=== PATIENT | female | born 1980 | race Hispanic/Latino ===

== ENCOUNTER 2016-11-11 15:08 | Inpatient (IN) | payer MEDICAID ==
[~2016-11-11] VITALS: Ht 160 cm; Wt 86.2 kg
[~2016-11-11 15:08] MED LIST: LABE100T4 PO
[2016-11-11] MEDS ORDERED: Lactated Ringer's 1,000 ML IV SCH (18:34)
[2016-11-11] MEDS ORDERED: Lactated Ringer's 1,000 ML IV PRN (18:34)
[2016-11-11] MEDS ORDERED: Ondansetron 2 mg/mL 2 mL Inj IVPUSH PRN (18:35)
[2016-11-11] MEDS ORDERED: diphenhydrAMINE 50 mg Capsule PO PRN (18:35)
[2016-11-11] MEDS ORDERED: Carboprost 250 mCg/mL Inj IM PRN (18:35)
[2016-11-11] MEDS ORDERED: Hemorrhage Kit, Post Partum XX ONE (18:35)
[2016-11-11] MEDS ORDERED: Oxytocin 30 Units/500 mL LR 30 UNITS in IV Premix 1 EACH IV PRN (18:35)
[2016-11-11] MEDS ORDERED: Oxytocin 10 Unit/mL Inj IM PRN (18:35)
[2016-11-11] MEDS ORDERED: fentaNYL-PF 50 mCg/mL 2 mL Inj IVPUSH PRN (18:35)
[2016-11-11] MEDS ORDERED: Methylergonovine 0.2 mg/mL Inj IM PRN (18:35)
[2016-11-11] MEDS ORDERED: CHOL100043 PO (18:38)
[2016-11-11] MEDS ORDERED: LABE200T PO (18:38)
--- NOTE | 2016-11-11 18:46 | PCM.HPOB ---
Subjective Date of Service: November 11, 2016 Referring Provider: Admitting Physician: Ike Sher MD Primary Care Physician: Elissa Sterling MD Attending Physician: Ike Sher MD Chief Complaint Contractions History of Present History of Present Illness Dorothy is a 36-year-old 2 para 1 with a history of advanced maternal age and gestational hypertension on labetalol who presented to the [facility] today with complaints of contractions. She was checked in the office earlier today by Dr. Sher was found be at that time about 3 cm. She had a category 1 heart rate tracing and was allowed to walk for several hours and upon her return to the [facility] she was 5 cm dilated. Her is located by advanced maternal age, uterine fibroid and an echogenic intracardiac focus on anatomy ultrasound. Estimated due date of December 02 2016 by a 7 week ultrasound. labs: She is O+, rubella immune, RPR nonreactive, testes the cervix and gently negative, HIV negative, gonorrhea and chlamydia were negative. She is GBS negative Obstetrical Complications: Gestational Hypertension Past Medical History Obstetrical History: 1. History of a vacuum-assisted vaginal delivery at 40 weeks gestation Gynecologic History: Noncontributory Medical History: No significant past medical history Surgical History: None Hx Tobacco Use: No Smoking Status: Never Smoker Hx Alcohol Use: No Hx Substance Use: No Past Family History Living Arrangement: with Family Genetic Screening/Counseling Genetic Screening/Counseling: Positive (advanced maternal age) Baby father-had child w defect: No Medications Home medications vitamin Allergy Coded Allergies: No Known Allergies (Unverified , 11/03/16) Exam Constitutional: Well-developed, Well-nourished HEENT: Atraumatic Lungs: Clear to Auscultation Heart: Exam Unremarkable Abdomen: Gravid Neurological/Psychiatric: Alert, Oriented X3, Cooperative, No Acute Distress Neuro: Grossly Neurologically Intact Additional Information Cervix is 5 cm/70/-2 soft and mid position Labs/Diagnostics Maternal Blood Type: O (Positive) Antibody Screen: negative Group B Strep Results: Negative Previous with GBS: No Rubella: Immune Lab History: Positive for: Hx Chicken Pox OB Intrapartum Assessment/Plan Problems: (1) Gestational HTN Plan: 37 weeks with gestational hypertension in early labor. Admit for labor and Pitocin augmentation if needed. Status: Acute ICD Code: O13.9 (2) 37 weeks gestation of Status: Acute ICD Code: Z3A.37 Brie Eden MD November 11, 2016 18:46
[2016-11-11 18:51] LABS: Mean Corpuscular Hemoglobin 30.6 pg (27.0-35.0); Mean Corpuscular Volume 91.9 fL (81-100)
--- NOTE | 2016-11-12 07:02 | PCM.PNOBIP ---
Subjective Date of Service November 12, 2016 Delivery plan: Spontaneous Vaginal Delivery Visit History Dorothy is a 36-year-old 2 para 1 with a history of advanced maternal age and gestational hypertension on labetalol who presented to the [facility] today with complaints of contractions. She was checked in the office earlier today by Dr. Sher was found be at that time about 3 cm. She had a category 1 heart rate tracing and was allowed to walk for several hours and upon her return to the [facility] she was 5 cm dilated. Her is located by advanced maternal age, uterine fibroid and an echogenic intracardiac focus on anatomy ultrasound. Estimated due date of December 02 2016 by a 7 week ultrasound. Subjective Patient has no complaints this morning. She is feeling contractions, but does not desire anything for pain at this time. Gastrointestinal: No N/V Group B Strep Results: Negative Rubella: Immune Blood Type: O (Positive) Labs Laboratory Tests 11/11/16 18:05: Hold Purple Top Tube Received 11/11/16 18:41: White Blood Count 10.8, Red Blood Count 4.44, Hemoglobin 13.6, Hematocrit 40.8, Mean Corpuscular Volume 91.9, Mean Corpuscular Hemoglobin 30.6, Mean Corpuscular Hemoglobin Concent 33.3, Red Cell Distribution Width 13.0, Platelet Count 192, Hematology Comments Exam Vital Signs Vital Signs Contraction frequency in minutes: 2 to 3 minutes Heart Tracings Heart Tones Baseline 140 bpm Heart Rate Variability: Moderate Heart Rate Accelleration: Present Heart Rate Deceleration: Present Heart Rate Category: II Sterile Vaginal Exam Cervical Dilation: 7 cms Cervical Effacement: 70 % Station: -3 Exam General: Alert, Oriented X3, Cooperative, Mild Distress (with contractions) OB Intrapartum Assessment/Plan Problems: (1) Gestational HTN Plan: Continue labetolol 200mg BID Status: Acute ICD Code: O13.9 (2) 37 weeks gestation of Status: Acute ICD Code: Z3A.37 (3) Preeclampsia Plan: Continue with Pitocin. AROM, but no fluid return Continue to monitor. FHT overall reassuring Status: Acute ICD Code: O14.90 Intrapartum plan: AROM Brie Eden MD November 12, 2016 07:02
[2016-11-12] MEDS ORDERED: fentaNYL 2 mCg/mL-Bupivicaine 0.125% 100 mL Premix EPIDURAL ONE (07:41)
[2016-11-12] MEDS ORDERED: Lactated Ringer's 1,000 ML IV SCH (11:02)
[2016-11-12] MEDS ORDERED: Methylergonovine 0.2 mg/mL Inj IM PRN (11:05)
[2016-11-12] MEDS ORDERED: Hemorrhage Kit, Post Partum XX ONE (11:05)
[2016-11-12] MEDS ORDERED: Oxytocin 30 Units/500 mL LR 30 UNITS in IV Premix 1 EACH IV PRN (11:05)
[2016-11-12] MEDS ORDERED: Benzocaine (Dermoplast) 20% 60 Gm Spray TOPICAL PRN (11:05)
[2016-11-12] MEDS ORDERED: Oxytocin 10 Unit/mL Inj IM PRN (11:05)
[2016-11-12] MEDS ORDERED: Witch Hazel-Glycerin Pads TOPICAL PRN (11:05)
[2016-11-12] MEDS ORDERED: Carboprost 250 mCg/mL Inj IM PRN (11:05)
[2016-11-12] MEDS ORDERED: LANOlin HPA 7 Gm Ointment TOPICAL PRN (11:05)
--- NOTE | 2016-11-12 11:47 | OP ---
[address] [address] OPERATIVE REPORT PATIENT: YESENIA BADILLO : 1980 MR#: [id number] ADMIT: 11/11/2016 JOB ID: [id number] DATE OF SURGERY: 11/12/2016 PREOPERATIVE DIAGNOSIS(ES): A 36-year-old 2, para 1-0-0-1, at 37 weeks and 1 day gestational age admitted for active labor. Had augmentation with Pitocin and artificial rupture of membranes. Progressed to fully dilated, +3 station. complicated with preeclampsia and high blood pressures were controlled with labetalol 200 mg q.12 and she developed a urine protein creatinine ratio of 0.39 on admission last night with new diagnosis of preeclampsia. POSTOPERATIVE DIAGNOSIS(ES): A 36-year-old 2, para 1-0-0-1, at 37 weeks and 1 day gestational age admitted for active labor. Had augmentation with Pitocin and artificial rupture of membranes. Progressed to fully dilated, +3 station. complicated with preeclampsia and high blood pressures were controlled with labetalol 200 mg q.12 and she developed a urine protein creatinine ratio of 0.39 on admission last night with new diagnosis of preeclampsia. PROCEDURE: Spontaneous vaginal delivery. SURGEON: Ike Sher M.D. ANESTHESIA: Epidural. ESTIMATED BLOOD LOSS: 200 cc. COMPLICATIONS: None. FINDINGS: Single viable male infant with Apgars 8/9. Weight is still pending. DESCRIPTION OF PROCEDURE: The patient started to push efficiently. had delivered atraumatic spontaneously with nuchal cord x1 reduced over the baby's neck and anterior shoulder delivered as well as posterior shoulder and rest of the body. Baby was delivered in left occiput anterior position. Delayed cord clamping allowed for 60 seconds, cord clamped and cut. Infant placed over mom's chest. Placenta followed spontaneously. Upon inspection, it was noted to be intact with three-vessel cord marginally inserted. Inspection of the perineum revealed a second-degree perineal laceration at 6 o'clock. This was repaired in two layer fashion with 2-0 Vicryl suture. Epidural was adequate for the repair. Good hemostasis assured. The patient tolerated the procedure well. Firm uterine fundus at the end of the delivery. Mom and baby recovering in stable condition in labor and delivery room. Dr. Sher was present and scrubbed for the entire delivery. Preeclampsia labs will be checked in the morning and will keep monitoring the patient's blood pressures.
[2016-11-12] MEDS: Ascorbic Acid 500 mg Tablet PO SCH (18:55)
[2016-11-13 06:33] LABS: BASOPHILS % (AUTO) 0.2 % (0-3); EOSINOPHILS % (AUTO) 0.6 % (0-5); MONOCYTES % (AUTO) 5.4 % (4-12); Mean Corpuscular Hemoglobin 30.9 pg (27.0-35.0); Mean Corpuscular Volume 93.7 fL (81-100); NEUTROPHILS % (AUTO) 73.3 % (40-74); Platelet Count 160 bil/L (150-400)
[2016-11-13] MEDS: Ascorbic Acid 500 mg Tablet PO SCH (08:16)
--- NOTE | 2016-11-13 13:39 | PCM.DIOB ---
Obstetrical Disch Instruction Date of Service: Nov 13, 2016 Dates of Hospitalization Date of Hospital Admission November 11, 2016 at 18:00 Providers Admitting Physician: Ike Sher MD Primary Care Physician: Elissa Sterling MD Attending Physician: Ike Sher MD Discharge Diagnosis Discharge Diagnosis PPD#1 S/P after Labor augmentation. Pre-eclampsia Problems: (1) Gestational HTN Status: Acute ICD Code: O13.9 (2) 37 weeks gestation of Status: Acute ICD Code: Z3A.37 (3) Preeclampsia Status: Acute ICD Code: O14.90 Diet Discharge Diet: No restrictions Activity Discharge Activity-General: Pelvic Rest for 6 weeks, No lifting >10 pounds for 4-6 weeks Dressing and Incisional Care Hygiene: May shower Follow Up Plan Follow-up Provider (F9): Ike Sher MD Follow-up appointment: Weeks (2) Call your provider for: Fever or Chills, Shortness of breath, Heavy vaginal bleeding, Other (excessive pain not controlled w/pain medications, headaches, chest pain , right upper quadrant abdominal pain, visual symptoms.) Ike Sher MD Nov 13, 2016 13:39
[2016-11-13] MEDS ORDERED: DOCU-41 PO (13:42)
[2016-11-13] MEDS ORDERED: IBUP-1827 PO (13:42)
[2016-11-13 14:07] VITALS: BP 135/82; PULSE 96; RESP 17
--- NOTE | 2016-11-13 23:14 | DIS ---
[address] [address] DISCHARGE SUMMARY PATIENT: YESENIA BADILLO : 1980 MR#: [id number] ADMIT: 11/11/2016 JOB ID: [id number] DIS: 11/13/2016 REASON FOR ADMISSION: Admitted for active labor and diagnosed new onset of preeclampsia. Discharged on November 13, 2016. DISCHARGE DIAGNOSIS: day number one, status post spontaneous vaginal delivery. The patient had labor augmentation with Pitocin and artificial rupture of membranes. Please see the fully dictated notes for details. On the day of discharge, the patient had no complaints, voiding, ambulating, tolerating p.o. intake, with no difficulties. Denied any headache, visual symptoms, chest pain, shortness of breath, right upper quadrant pain or leg pain. OBJECTIVE: Vital signs are 135/82 for blood pressure, respirations are 17, pulse is 96, temperature 36.4 degrees centigrade. Blood pressure ranges since delivery systolic 137-211 and diastolics 82-51, still on labetalol 200 mg q.12 h. Heart is regular rate and rhythm. Positive S1, S2. Lungs clear to auscultation upper and lower zones bilaterally. Abdomen firm. Uterine fundus palpated at 1 cm below the umbilicus. Nontender. Positive bowel sounds. Nondistended abdomen. Perineum: No active bleeding. Lower extremities: No calf tenderness appreciated bilaterally. Deep tendon reflexes are 2+ upper, 2+ lower. No clonus. No right upper quadrant abdominal tenderness. DISCHARGE PLAN: Patient will be discharged home in stable condition. Will follow up with Dr. Sher in the office in two weeks. Instructed to have nothing in the vagina for six weeks. No heavy lifting more than baby's weight. Instructed to call for fever, chills, severe abdominal pain not controlled with medication, heavy vaginal bleeding, headache, visual symptoms, chest pain, shortness of breath, right upper quadrant pain or any other concerning symptoms. LABS: On the morning of discharge, H and H is 15.2 and 40 for hemoglobin and hematocrit, platelets are 160. AST 23, ALT 12, stable labs. Blood pressure controlled with labetalol dose. Will DC home with the same dose. DISCHARGE MEDICATIONS: Continue labetalol 200 mg q.12 h. Check blood pressure daily. Do not take the dose for any blood pressure less than 110/60. Bring daily blood pressure log with you to your office appointment. Ibuprofen 600 mg every 6 hours for pain. Colace 100 mg twice daily. Continue with vitamins. The patient understood the discharge instructions. She will comply with her discharge plan.
== END 2016-11-13 14:50 | disposition home or self-care (01) | DRG 775 ==
LOC: FBCO 15:08 → FBC 18:00
PROVIDERS: ADMIT Obstetrics & Gynecology; ATTEND Obstetrics & Gynecology
PROC: 10E0XZZ Delivery of Products of Conception, External Approach (ICD-10-PCS; principal; 2016-11-12)
PROC: 0KQM0ZZ Repair Perineum Muscle, Open Approach (ICD-10-PCS; 2016-11-12)
PROC: 10907ZC Drainage of Amniotic Fluid, Therapeutic from Products of Conception, Via Natural or Artificial Opening (ICD-10-PCS; 2016-11-12)
DX: O13.4 Gestational [pregnancy-induced] hypertension without significant proteinuria, complicating childbirth (principal); O69.81X0 Labor and delivery complicated by cord around neck, without compression, not applicable or unspecified; O14.94 Unspecified pre-eclampsia, complicating childbirth; O70.1 Second degree perineal laceration during delivery; Z3A.37 37 weeks gestation of pregnancy; Z37.0 Single live birth